=== PATIENT | female | born 1975 | race Caucasian/White ===

== ENCOUNTER 2017-06-01 19:03 | Emergency (ER) | payer OTHER ==
[~2017-06-01] VITALS: Ht 175.3 cm; Wt 113.4 kg
[~2017-06-01 19:03] MED LIST: ADVAIR 1001 DISK W/D; ALBUTEROL17 GM; FLEXERIL10 MG PO; VOLTAREN75 MG PO
== END 2017-06-01 20:47 | disposition home or self-care (01) ==
LOC: CED 19:03 → CFTX 19:03
DX: L03.211 Cellulitis of face (principal); N92.0 Excessive and frequent menstruation with regular cycle; J45.909 Unspecified asthma, uncomplicated; F17.210 Nicotine dependence, cigarettes, uncomplicated; Z98.890 Other specified postprocedural states
CPT/HCPCS: 99283